=== PATIENT | male | born 1955 | race African-American/Black ===

== ENCOUNTER 2020-07-04 06:46 | Outpatient (CLI) | payer OTHER ==
[2020-07-04 17:49] LABS: SARS-CoV-2 MS2 Positive; SARS-CoV-2 N Gene Negative; SARS-CoV-2 S Gene Negative; SARS-CoV-2 by NAA Not Detected (NotDetected); SARS-CoV-2 orf1ab Negative
== END 2020-07-04 06:47 | disposition home or self-care (01) ==
LOC: LABBT 06:46
PROVIDERS: ATTEND Neurological Surgery
DX: M48.061 Spinal stenosis, lumbar region without neurogenic claudication (principal); Z20.828 Contact with and (suspected) exposure to other viral communicable diseases
CPT/HCPCS: 87635; U0003

== ENCOUNTER 2020-07-09 06:15 | Day surgery (SDC) | payer OTHER ==
[2020-07-08 10:43] VITALS: BMI 23.3
--- NOTE | 2020-07-08 22:00 | HP ---
HISTORY OF PRESENT ILLNESS: Mr. Larios is a 65-year-old man, [facility] severe [facility] back pain and symptoms of what sounds like neurogenic claudication. He does report some radicular components of the anterior thighs, but these are less frequent. These began to significantly impact his ability to ambulate. He has seen other providers in the past who ultimately recommended conservative management only. He had an MRI on reveals a central canal stenosis at L3-L4, which was certainly his presentation. He hopes to discuss other options. Examination is deferred secondary to telehealth visit. PAST MEDICAL HISTORY: Diabetes. MEDICATIONS: 1. Albuterol. 2. Amlodipine. 3. Aspirin. 4. Atorvastatin. 5. Budesonide. 6. Bupropion. 7. Docusate. 8. Hydrochlorothiazide. 9. Lidocaine patches. 10. Losartan. 11. Melatonin. 12. Metformin. 13. Methocarbamol. 14. Omeprazole. 15. Lyrica. 16. Tadalafil. 17. Trazodone. PAST SURGICAL HISTORY: Unlisted. ALLERGIES: TO VIAGRA. ASSESSMENT: Lumbar stenosis with neurogenic claudication. PLAN: Dr. Fermin met with the patient, reviewed imaging, and advocated for L3-L4 decompression. He explained to the patient the risks, benefits, and alternatives to the procedure. The patient expressed understanding and elected to move forward with surgery as discussed. I do believe the patient is mentally competent and capable of making medical decisions for himself. We will move forward with surgery as planned. Job ID: [id number]
[2020-07-09] MEDS ORDERED: Thrombin 5000 UNITS/5 ML VIAL ONE (06:41)
[2020-07-09] MEDS ORDERED: Bupivacaine HCl 0.5%/Epinephrine 1:200,000/PF 30 ml Vial ONE (06:41)
[2020-07-09] MEDS ORDERED: Fentanyl 100 MCG/2 ML VIAL ONE ×5 (06:57→10:00)
[2020-07-09] MEDS ORDERED: Midazolam HCl 2 mg/2 ml Vial ONE (06:57)
--- NOTE | 2020-07-09 09:08 | OP ---
DATE OF PROCEDURE: 07/09/2020 ANIMAL CARE SUPERVISOR: Petey Simmons PA-C INDICATION: Pain. DIAGNOSIS: Lumbar stenosis. PROCEDURE PERFORMED: L3-L4 decompression. ANESTHESIA: General. DESCRIPTION OF PROCEDURE: The patient was brought into the operating room and placed under general anesthesia. He was flipped from the supine to prone position on the operating room table. A linear incision was planned over the L3-L4 segment. After prepping and draping and after an appropriate preoperative pause, the incision was created. The soft tissues were swept away from midline. A self-retaining retractor was placed and a C-arm image was obtained. After confirming the appropriate level, an Adson rongeur was used to move the spinous process of the inferior half of L3 and the superior aspect of L4. High-speed cutting drill bit as well as 2, 3, and 4 mm Kerrisons were then used to complete the laminectomy. The laminectomy was extended laterally to encompass the medial aspect of the facet joints. After completing the decompression, the wound was irrigated. Hemostasis was maintained throughout. The wound was then closed in anatomic layers, and a pressure dressing was applied. There were no known procedural complications. Job ID: [id number]
[2020-07-09] MEDS ORDERED: Tamsulosin HCl 0.4 MG CAP ONE (09:28)
[2020-07-09] MEDS ORDERED: PROPOFOL 200 MG/20 ML VIAL ONE (11:15)
[2020-07-09] MEDS ORDERED: Rocuronium Bromide 10 MG/ML (10ML VIAL) ONE (11:15)
[2020-07-09] MEDS ORDERED: Glycopyrrolate 0.2 MG/ML 5 ML SYRINGE ONE (11:15)
[2020-07-09] MEDS ORDERED: Labetalol HCl 100 MG/20 ML VIAL ONE (11:15)
[2020-07-09] MEDS ORDERED: Lidocaine 1% PF 5 ML VIAL ONE (11:15)
[2020-07-09] MEDS ORDERED: Ondansetron PF 4 MG/2 ML Vial ONE (11:15)
[2020-07-09] MEDS ORDERED: HYDROcodone/Acetaminophen 5/325 mg Tablet ONE (11:20)
--- NOTE | 2020-07-09 15:08 | EKG ---
Test Reason : PREOP Blood Pressure : / mmHG Vent. Rate : 081 BPM Atrial Rate : 081 BPM P-R Int : 172 ms QRS Dur : 084 ms QT Int : 400 ms P-R-T Axes : 078 030 071 degrees QTc Int : 464 ms Normal sinus rhythm Septal infarct , age undetermined cannot be excluded Abnormal ECG Confirmed by BREE CONDE ([id number]) on 07/09/2020 3:08:23 PM Referred By: GIRISH Confirmed By:BREE CONDE
== END 2020-07-09 12:05 | disposition home or self-care (01) ==
LOC: SDC 06:15
PROVIDERS: ATTEND Neurological Surgery
PROC: 01NB0ZZ Release Lumbar Nerve, Open Approach (ICD-10-PCS; principal; 2020-07-09)
DX: M48.062 Spinal stenosis, lumbar region with neurogenic claudication (principal); I10 Essential (primary) hypertension; E11.9 Type 2 diabetes mellitus without complications; E78.5 Hyperlipidemia, unspecified; J44.9 Chronic obstructive pulmonary disease, unspecified; F17.200 Nicotine dependence, unspecified, uncomplicated; Z79.82 Long term (current) use of aspirin; Z79.84 Long term (current) use of oral hypoglycemic drugs; Z79.899 Other long term (current) drug therapy
CPT/HCPCS: 76000; 93005; 93010; J0670; J0690; J2250; J2405; J2704; J3010